=== PATIENT | female | born 2000 | race Caucasian/White ===

== ENCOUNTER 2019-06-14 18:22 | Emergency (ER) | payer BC, SELFPAY | END 2019-06-14 21:25 | disposition home or self-care (01) | PROVIDERS: Emergency Provider Emergency Medicine; Family Provider Nurse Practitioner Family; Visit Provider Emergency Medicine | DX: R10.11 Right upper quadrant pain (principal); R10.13 Epigastric pain; R10.12 Left upper quadrant pain; J45.909 Unspecified asthma, uncomplicated; Z87.891 Personal history of nicotine dependence | CPT/HCPCS: 76700; 76815; 76817; 80053; 81001; 83690; 83735; 85025; 96361 ×2; 96374; 96375; 99284; J2270; J2765 ==

== ENCOUNTER 2019-06-24 14:33 | Emergency (ER) | payer BC, SELFPAY ==
[2019-06-24 15:06] VITALS: BP 123/81; PULSE 83; RESP 18; TEMP 36.8; O2SAT 98; BMI 32.8
[2019-06-24 15:43] LABS: Basophils % 0.1 %; Eosinophils % 0.4 %; Hematocrit 35.6 % (37.0-47.0); Hemoglobin 12.1 g/dL (11.5-15.3); Lymphocytes # 1.2 10^3/uL (0.8-4.8); Lymphocytes % 15.5 %; Mean Corpuscular Hemoglobin 28.3 pg (28.0-34.0); Mean Corpuscular Volume 83.4 fL (81-99); Mean Platelet Volume 11.4 fL (7.4-10.4); Monocytes # 0.3 10^3/uL (0.2-0.9); Monocytes % 4.1 %; Neutrophils # 6.2 10^3/uL (1.8-7.7); Neutrophils % 79.6 %; Nucleated Red Blood Cells % 0 %; Platelet Count 181 10^3/cmm (130-400); Red Blood Count 4.27 10^6/uL (4.1-5.3); Red Cell Distribution Width 12.2 % (12.1-15.1); White Blood Count 7.8 10^3/uL (4.0-10.0)
[2019-06-24 16:02] LABS: Alanine Aminotransferase 45 U/L (0-33); Albumin Level 4.3 g/dL (3.5-5.2); Alkaline Phosphatase 88 IU/L (35-105); Anion Gap 16.8 (5-19); Aspartate Amino Transferase 32 U/L (0-32); Blood Urea Nitrogen 10 mg/dL (6-20); Calcium 9.9 mg/Dl (8.6-10.0); Carbon Dioxide 20 mmol/L (22-29); Chloride 102 mmol/L (98-107); Globulin 2.8 g/dL (1.3-4.6); Glomerular Filtration Rate 126.2 mL/min (90-130); Glucose 87 mg/dL (74-109); Potassium 3.8 mmol/L (3.5-5.1); Sodium 135 mmol/L (136-145); Total Bilirubin 0.2 mg/dL (0.15-1.2); Total Protein 7.1 g/dL (6.6-8.7)
[2019-06-24 18:31] LABS: Add Urine Microscopic? YES; Bilirubin Urine Neg (NEGATIVE); Blood Urine Neg (Negative); Glucose Urine UA Norm (Normal); Ketones Urine 2+ (Negative); Leukocyte Esterase Urine 1+ (Negative); Nitrate Urine Negative (Negative); Protein Urine Neg (Negative); Specific Gravity, Urine 1.025 (1.005-1.030); Urine Appearance SL Hazy (CLEAR); Urine Color Yellow (Yellow); Urobilinogen Urine 1 mg/dL (Negative); pH Urine 5 (5-7)
[2019-06-24 18:44] LABS: Bacteria Urine 2+
--- NOTE | 2019-06-24 20:42 | ED_ITS ---
Entered by Raysa Doll, acting as scribe for Pam Roy MD Jun 24, 2019 14:33 HPI - Abdominal Pain General: Chief Complaint: Abdominal Pain Stated Complaint: 13wks preg cramping Time Seen by Provider: 06/24/19 20:40 Source: patient and family Mode of arrival: ambulatory History of Present Illness: HPI narrative: 19 y/o female presents to the ED with complaint of abd pain and cramping. Pt states she is currently . 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 She is worried that the cleaning products have brought about her cramping and nausea for the past 2-3 days. She has not seen her OB yet because she does not have a ride. MD elicited complaint: abdominal pain Onset (ago): day(s) (2-3) Pain Consistency: intermittent Severity: mild Quality: cramping Associated Symptoms: Reports nausea; Denies chills and fever(s) Related Data: Date of Last Menstrual Period: 03/17/19 Patient : Yes Review of Systems Const: Denies: fever or chills Eyes: Denies: change in vision ENMT: Denies: throat pain or mouth pain Card: Denies: chest pain Resp: Denies: shortness of breath GI: Reports: nausea : Denies: difficulty urinating Musc: Denies: back pain or joint pain Skin/Breast: Denies: rash Neuro: Denies: headache or behavioral changes Psych: Denies: depression Endo: Denies: excessive urination Everardo/Lymph: Denies: easy bruising All/Imm: Denies: hives PFSH ED PFSH: Statuses (acute, chronic, etc) shown below reflect problem list status as previously entered and may not be historically accurate Social History Smoking and tobacco status: former smoker Female Reproductive History: Date of last menstrual period: 03/17/19 Physical Exam Const: COMMON NORMALS: no apparent distress, oriented x3 and healthy appearing HENMT: COMMON NORMALS: normocephalic and external nose normal HEAD & SCALP: normocephalic NOSE: external nose normal Eye: COMMON NORMALS: PERRL PUPIL: Yes PERRL Neck/C-Spine: COMMON NORMALS: full ROM and no lymphadenopathy Chest: COMMONS NORMALS: inspection of chest normal Resp: COMMON NORMALS: normal respiratory effort, no use of accessory muscles and clear to auscultation bilaterally AUSCULTATION: clear to auscultation bilaterally Cardio: COMMON NORMALS: regular rate and regular rhythm RATE: regular rate RHYTHM: regular rhythm GI: COMMON NORMALS: normal to inspection, nondistended, normoactive bowel sounds, soft to palpation, non-tender and no masses PALPATION: Yes soft Back/Pelvis: THORACIC SPINE/UPPER BACK: Yes normal to inspection Extremity: COMMON NORMALS: normal to inspection, full ROM and normal capillary refill Neuro: COMMON NORMALS: oriented x3 Psych: COMMON NORMALS: mental status grossly normal and cooperative Skin: COMMON NORMALS: no rashes or lesions noted GENERAL SKIN EXAM: no rashes or lesions noted Course Vital Signs: Vital signs: Vital Signs Temperature 98.2 F 06/24/19 15:06 Pulse Rate 83 06/24/19 15:06 Respiratory Rate 18 06/24/19 15:06 Blood Pressure 123/81 06/24/19 15:06 Pulse Oximetry 98 06/24/19 15:06 MDM - Abdominal Pain MDM Narrative: Medical decision making narrative: Patient presents here with abdominal pain and that is likely round ligament pain. Patient's ultrasound here shows IUP with heart rate of in 140s. Patient has no signs appendicitis. Patient is stable for discharge and is to follow-up with OB as soon as possible Lab Data: Labs: Lab Results 06/23/19 06/24/19 06/24/19 Range/Units 15:30 15:32 15:32 WBC 7.8 (4.0-10.0) 10^3/ uL RBC 4.27 (4.1-5.3) 10^6/u L Hgb 12.1 (11.5-15.3) g/dL Hct 35.6 L (37.0-47.0) % MCV 83.4 (81-99) fL MCH 28.3 (28.0-34.0) pg MCHC 34.0 (30.0-36.0) g/dL RDW 12.2 (12.1-15.1) % Plt Count 181 (130-400) 10^3/c mm MPV 11.4 H (7.4-10.4) fL Neut % (Auto) 79.6 % Lymph % (Auto) 15.5 % Bucks % (Auto) 4.1 % Eos % (Auto) 0.4 % Baso % (Auto) 0.1 % Neut # (Auto) 6.2 (1.8-7.7) 10^3/u L Lymph # (Auto) 1.2 (0.8-4.8) 10^3/u L Bucks # (Auto) 0.3 (0.2-0.9) 10^3/u L Eos # (Auto) 0.0 (0.0-0.8) 10^3/u L Baso # (Auto) 0.0 (0.0-0.1) 10^3/u L Nucleated RBC % (a uto) 0 % Nucleated RBCs # 0.0 /100WBC Sodium (136-145) mmol/L Potassium (3.5-5.1) mmol/L Chloride (98-107) mmol/L Carbon Dioxide (22-29) mmol/L Anion Gap (5-19) BUN (6-20) mg/dL Creatinine (0.5-0.9) mg/dL GFR Calculation (90-130) mL/min Glucose (74-109) mg/dL Calcium (8.6-10.0) mg/Dl Total Bilirubin (0.15-1.2) mg/dL AST (0-32) U/L ALT (0-33) U/L Alkaline Phosphata se (35-105) IU/L Total Protein (6.6-8.7) g/dL Albumin (3.5-5.2) g/dL Globulin (1.3-4.6) g/dL Ser , Geovanny i-Qnt mIU/mL Urine Color Yellow (Yellow) Urine Appearance Sl hazy (CLEAR) Urine pH 5 (5-7) Ur Specific Gravit y 1.025 (1.005-1.030) Urine Protein Neg (Negative) Urine Glucose (UA) Norm (Normal) Urine Ketones 2+ H (Negative) Urine Occult Blood Neg (Negative) Urine Nitrate Negative (Negative) Urine Bilirubin Neg (NEGATIVE) Urine Urobilinogen 1 H (Negative) mg/dL Ur Leukocyte Diamond ase 1+ H (Negative) Urine RBC None (0-2) /hpf Urine WBC 5-10 H (0-5) /hpf Ur Squamous Epith Cells 10-15 H (0-5) Calcium Oxalate Cr ystal 5-10 H /hpf Urine Bacteria 2+ H (NONE) Blood Type O Negative 06/24/19 06/24/19 Range/Units 15:32 15:32 WBC (4.0-10.0) 10^3/ uL RBC (4.1-5.3) 10^6/u L Hgb (11.5-15.3) g/dL Hct (37.0-47.0) % MCV (81-99) fL MCH (28.0-34.0) pg MCHC (30.0-36.0) g/dL RDW (12.1-15.1) % Plt Count (130-400) 10^3/c mm MPV (7.4-10.4) fL Neut % (Auto) % Lymph % (Auto) % Bucks % (Auto) % Eos % (Auto) % Baso % (Auto) % Neut # (Auto) (1.8-7.7) 10^3/u L Lymph # (Auto) (0.8-4.8) 10^3/u L Bucks # (Auto) (0.2-0.9) 10^3/u L Eos # (Auto) (0.0-0.8) 10^3/u L Baso # (Auto) (0.0-0.1) 10^3/u L Nucleated RBC % (a uto) % Nucleated RBCs # /100WBC Sodium 135 L (136-145) mmol/L Potassium 3.8 (3.5-5.1) mmol/L Chloride 102 (98-107) mmol/L Carbon Dioxide 20 L (22-29) mmol/L Anion Gap 16.8 (5-19) BUN 10 (6-20) mg/dL Creatinine 0.6 (0.5-0.9) mg/dL GFR Calculation 126.2 (90-130) mL/min Glucose 87 (74-109) mg/dL Calcium 9.9 (8.6-10.0) mg/Dl Total Bilirubin 0.2 (0.15-1.2) mg/dL AST 32 (0-32) U/L ALT 45 H (0-33) U/L Alkaline Phosphata se 88 (35-105) IU/L Total Protein 7.1 (6.6-8.7) g/dL Albumin 4.3 (3.5-5.2) g/dL Globulin 2.8 (1.3-4.6) g/dL Ser , [place] 50108.00 mIU/mL Urine Color (Yellow) Urine Appearance (CLEAR) Urine pH (5-7) Ur Specific Gravit y (1.005-1.030) Urine Protein (Negative) Urine Glucose (UA) (Normal) Urine Ketones (Negative) Urine Occult Blood (Negative) Urine Nitrate (Negative) Urine Bilirubin (NEGATIVE) Urine Urobilinogen (Negative) mg/dL Ur Leukocyte Diamond ase (Negative) Urine RBC (0-2) /hpf Urine WBC (0-5) /hpf Ur Squamous Epith Cells (0-5) Calcium Oxalate Cr ystal /hpf Urine Bacteria (NONE) Blood Type Discharge Plan Discharge Patient Disposition: Home, Self-Care Clinical Impression: Abdominal pain affecting Condition: Stable Prescriptions: New Zofran 4 mg tablet 4 mg PO QID PRN (Reason: nausea and vomiting) Qty: 14 RF: 0 No Action albuterol sulfate 90 mcg/actuation Hfa Aerosol Inhaler 2 puff INHALATION QID PRN (Reason: Shortness Of Breath Or Wheezing) RF: 0 28-800 mg-mcg Tablet PO DAILY RF: 0 Discharge Orders: Discharge Order (Routine); Ordered 06/24/19 Ordered By: Pam Roy Referrals: Scotty Lindsay MD [Physician] - Greg Begum FNP [Primary Care Provider] - Discharge Diet: Advance as tolerated Discharge Activity: Resume usual activity Patient Instructions: (ED) Stand Alone Forms: Work/School Release Discharge Date/Time: 06/24/19 21:05 Coding Level of Care Code ED Diabetes Trainer for Chg Fwd Exam Problem Focused The documentation recorded by the Lavon castañeda Ashley, accurately reflects the service I personally performed and the decisions made by Kirill marie Korby, MD Jun 24, 2019 14:33
== END 2019-06-24 21:05 | disposition home or self-care (01) ==
PROVIDERS: Physician Assistant; Emergency Provider Emergency Medicine; Family Provider Nurse Practitioner Family; PCP Nurse Practitioner Family
DX: O26.891 Other specified pregnancy related conditions, first trimester (principal); R10.9 Unspecified abdominal pain; Z3A.13 13 weeks gestation of pregnancy; Z87.891 Personal history of nicotine dependence
CPT/HCPCS: 36415; 80053; 81003; 84702; 85025; 86900; 99281

== ENCOUNTER 2019-07-01 00:12 | Emergency (ER) | payer BC, SELFPAY ==
--- NOTE | 2019-07-01 00:24 | ED_ITS ---
Entered by Raysa Doll, acting as scribe for Pam Roy MD HPI - General Adult General: Chief complaint: Shortness of Breath/Dyspnea Stated complaint: SOB Time Seen by Provider: 07/01/19 00:16 Source: patient, family and EMS Mode of arrival: EMS Limitations: no limitations History of Present Illness: HPI narrative: 19 y/o female presents to the ED for SOB with exertion. Pt states they were walking outside when this occurred. Pt reports abd pain and wants an ultrasound for her baby. MD complaint: SOB Onset (ago): hour(s) Location: chest Severity: mild Associated symptoms: Reports dyspnea (with exertion); Deny chest pain, headache(s), nausea, rash or vomiting Review of Systems Const: Denies: fever or chills Eyes: Denies: change in vision ENMT: Denies: throat pain or mouth pain Card: Denies: chest pain Resp: Reports: shortness of breath (with exertion) GI: Reports: abdominal pain; Denies: nausea, vomiting or diarrhea : Denies: difficulty urinating Musc: Denies: back pain or joint pain Skin/Breast: Denies: rash Neuro: Denies: headache or behavioral changes Psych: Denies: depression Endo: Denies: excessive urination Everardo/Lymph: Denies: easy bruising All/Imm: Denies: hives PFSH ED PFSH: Statuses (acute, chronic, etc) shown below reflect problem list status as previously entered and may not be historically accurate Social History Smoking and tobacco status: former smoker Female Reproductive History: Date of last menstrual period: 03/17/19 Physical Exam Const: COMMON NORMALS: no apparent distress, oriented x3 and healthy appearing HENMT: COMMON NORMALS: normocephalic and external nose normal HEAD & SCALP: normocephalic NOSE: external nose normal Eye: COMMON NORMALS: PERRL PUPIL: Yes PERRL Neck/C-Spine: COMMON NORMALS: full ROM and no lymphadenopathy Chest: COMMONS NORMALS: inspection of chest normal Resp: COMMON NORMALS: normal respiratory effort, no use of accessory muscles and clear to auscultation bilaterally AUSCULTATION: clear to auscultation bilaterally Cardio: COMMON NORMALS: regular rate and regular rhythm RATE: regular rate RHYTHM: regular rhythm GI: COMMON NORMALS: normal to inspection, nondistended, normoactive bowel sounds, soft to palpation, non-tender and no masses PALPATION: Yes soft Back/Pelvis: THORACIC SPINE/UPPER BACK: Yes normal to inspection Extremity: COMMON NORMALS: normal to inspection, full ROM and normal capillary refill Neuro: COMMON NORMALS: oriented x3 Psych: COMMON NORMALS: mental status grossly normal and cooperative Skin: COMMON NORMALS: no rashes or lesions noted GENERAL SKIN EXAM: no rashes or lesions noted Course Vital Signs: Vital signs: Vital Signs Temperature 97.5 F L 07/01/19 00:25 Pulse Rate 68 07/01/19 00:25 Respiratory Rate 24 H 07/01/19 00:25 Blood Pressure 121/77 07/01/19 00:25 Pulse Oximetry 98 07/01/19 00:25 MDM - General Adult MDM Narrative: Medical decision making narrative: Patient presents here with dyspnea that is since resolved. EKG and x-ray here are normal. She has no signs of pneumonia or pulmonary embolism. Patient is to follow-up with OB in 2 to 4 days and return if worsening. Imaging Data^: CXR: Attestation: I personally reviewed and interpreted this imaging study as follows: My impression: no acute abnormality EKG Data^: EKG 1: Attestation: I personally reviewed and interpreted this EKG as follows: EKG interpretation date: 07/01/19 EKG interpretation time: 00:51 Interpretation: nsr hr [address] or t wave abnormalities qrs 85 qtc 405 Discharge Plan Discharge Patient Disposition: Home, Self-Care Clinical Impression: Breath shortness Condition: Stable Prescriptions: No Action albuterol sulfate 90 mcg/actuation Hfa Aerosol Inhaler 2 puff INHALATION QID PRN (Reason: Shortness Of Breath Or Wheezing) RF: 0 28-800 mg-mcg Tablet PO DAILY RF: 0 Zofran 4 mg tablet 4 mg PO QID PRN (Reason: nausea and vomiting) Qty: 14 RF: 0 Discharge Orders: Discharge Order (Routine); Ordered 07/01/19 Ordered By: Pam Roy Referrals: Greg Begum FNP [Primary Care Provider] - 4-7 days Discharge Diet: Advance as tolerated Discharge Activity: Resume usual activity Patient Instructions: Dyspnea (ED) Coding Level of Care Code ED Spring Setter for [facility] Fwd Exam Problem Focused The documentation recorded by the scribe, Green,Raysa, accurately reflects the service I personally performed and the decisions made by me, Pam Roy MD
[2019-07-01 00:25] VITALS: BP 121/77; PULSE 68; RESP 24; TEMP 36.4; O2SAT 98
--- NOTE | 2019-07-01 00:25 | ECG_ITS ---
Measurements Intervals [place] Rate: 63 P: 50 VA: 162 QRS: 24 QRSD: 85 T: 18 QT: 397 QTc: 409 SINUS RHYTHM No previous ECG available for comparison Electronically Signed On 07-01-2019 20:11:23 CHIEF OPERATOR SYNTHESIS by Vanesa Carreno M.D. [email or web address]
--- NOTE | 2019-07-01 00:25 | XR_ITS ---
WS: [id number] CHEST XRAY TECHNIQUE: Portable chest. CLINICAL INFORMATION: sob COMPARISON: None. FINDINGS: Heart: Normal cardiac silhouette. Lungs: Lungs are clear. No consolidation or pleural effusion. Bones: Normal visualized bony structures. XR/XR chest 1V portable [id number] IMPRESSION: Normal chest
[2019-07-01 01:30] VITALS: BP 105/73; PULSE 68; RESP 18; O2SAT 97
== END 2019-07-01 01:31 | disposition home or self-care (01) ==
PROVIDERS: Emergency Provider Emergency Medicine; Family Provider Nurse Practitioner Family; PCP Nurse Practitioner Family
DX: R06.02 Shortness of breath (principal); Z87.891 Personal history of nicotine dependence
CPT/HCPCS: 71045; 93005; 99282

== ENCOUNTER 2019-07-05 13:45 | Emergency (ER) | payer BC, SELFPAY ==
[2019-07-05 13:55] VITALS: BP 114/80; PULSE 104; RESP 17; TEMP 36.8; O2SAT 98; BMI 30.9
--- NOTE | 2019-07-05 14:25 | ED_ITS ---
Entered by Jennifer Kern, acting as scribe for Cayden Vanessa DO HPI - Psych General: Chief Complaint: Psychiatric Symptoms Stated Complaint: 15 weeks preg, abn pain Time Seen by Provider: 07/05/19 14:25 Source: patient Mode of arrival: ambulatory Limitations: no limitations History of Present Illness: HPI Narrative: 19 yo Female presents to ED with complaint of psychiatric symptoms. Pt states that there is too much going on and she can't handle it mentally anymore. Pt states that they are homeless and have nowhere to go for the next 48 hours. Pt states that she is afraid she is going to lose her baby. Pt states that she is 14 weeks . Pt states that her nausea won't go away and her cramps won't go away. Pt states that she has no FIELD TRAFFIC INVESTIGATOR. Pt states that she was supposed to see an FIELD TRAFFIC INVESTIGATOR in May but she had to cancel twice because her ride cancelled on her an hour before her appointments. Pt states that she is not homicidal or suicidal. Pt states that she needs a mood stabilizer and a place to stay for 48 hours. Associated symptoms: Deny depression Review of Systems General: Reports: 10 or more systems reviewed and unremarkable except in HPI and below Const: Denies: fever, chills or body aches Eyes: Denies: change in vision, blurry vision or blind spots ENMT: Denies: throat pain, uvular edema, enlarged tonsils, painful swallowing, hoarseness, mouth pain or swelling of lips/tongue Card: Denies: chest pain, palpitations, irregular heart rhythm, edema or swelling of feet/ankles Resp: Denies: shortness of breath, productive cough or non-productive cough GI: Reports: nausea and cramping; Denies: abdominal pain or vomiting : Denies: flank pain, difficulty urinating, painful urination, urinary frequency or urinary urgency Musc: Denies: joint swelling or redness Skin/Breast: Denies: rash, itching or redness Neuro: Denies: headache, numbness in extremities or weakness in extremities Psych: Reports: anxiety; Denies: depression, mood swings or panic attacks Endo: Denies: excessive urination, excessive thirst or tired all the time Everardo/Lymph: Denies: easy bruising or easy bleeding PFSH ED PFSH: Statuses (acute, chronic, etc) shown below reflect problem list status as previously entered and may not be historically accurate Social History Smoking and tobacco status: former smoker Female Reproductive History: Date of last menstrual period: 03/17/19 Physical Exam Const: COMMON NORMALS: no apparent distress, average body habitus, oriented x3, no limitations, healthy appearing, alert and well nourished HENMT: COMMON NORMALS: normocephalic, head/scalp atraumatic, hearing grossly normal bilaterally, external ears normal, EAC's normal, TM's normal bilaterally, external nose normal, nasal mucous membranes and turbinates normal, moist oral mucous membranes, oropharynx normal, dentition normal and gingiva normal HEAD & SCALP: normocephalic and atraumatic NOSE: external nose normal and nasal mucous membranes and turbinates normal EXTERNAL EAR: Yes external ears normal EXTERNAL AUDITORY CANAL: EAC's normal TYMPANIC MEMBRANE: TM's normal bilaterally THROAT: no uvular edema Eye: COMMON NORMALS: PERRL, EOMs intact bilaterally, conjunctivae normal, no scleral icterus, no papilledema, normal visual marcelino by confrontation and fundi normal bilaterally CONJUNCTIVA: Yes conjunctivae normal PUPIL: Yes PERRL DIRECT OPHTHALMOSCOPY: Yes no papilledema and Yes fundi normal bilaterally Neck/C-Spine: COMMON NORMALS: full ROM, no lymphadenopathy, supple, no meningeal signs, no JVD, thyroid normal and no carotid bruits THYROID: thyroid normal Chest: COMMONS NORMALS: inspection of chest normal and palpation of chest normal Resp: COMMON NORMALS: normal respiratory effort, no retractions, no use of accessory muscles, clear to auscultation bilaterally and percussion normal AUSCULTATION: clear to auscultation bilaterally PERCUSSION: percussion normal Cardio: COMMON NORMALS: no JVD, regular rate, regular rhythm, S1 normal heart sound, S2 normal heart sound, no gallops, no clicks, no murmurs, no rub and peripheral pulses 2+ throughout RATE: regular rate RHYTHM: regular rhythm HEART SOUNDS: S1 normal and S2 normal PERIPHERAL PULSES: pulses 2+ throughout GI: COMMON NORMALS: normal to inspection, nondistended, normoactive bowel sounds, soft to palpation, non-tender, no hepatosplenomegaly, no masses and no bruits PALPATION: Yes soft and Yes no hepatosplenomegaly : COMMON NORMALS: Yes no CVA tenderness and Yes external appearance normal BLADDER/KIDNEY EXAM: Yes no CVA tenderness Back/Pelvis: COMMON NORMALS: no CVA tenderness, thoracic and lumbar spine normal to inspection, no thoracic nor lumbar tenderness, thoraco-lumbar ROM normal and straight leg raise negative bilaterally Extremity: COMMON NORMALS: normal to inspection, full ROM, normal capillary refill, no joint enlargement, no clubbing, cyanosis or edema, no calf tenderness and no pedal edema Neuro: COMMON NORMALS: oriented x3 SENSORIUM/ORIENTATION: Yes alert MENINGEAL SIGNS: Yes no meningeal signs Skin: COMMON NORMALS: no rashes or lesions noted, no wounds, skin turgor normal, no jaundice, no petechiae and no mottling GENERAL SKIN EXAM: no rashes or lesions noted and turgor normal MDM - Psych Lab Data: Labs: Lab Results 07/05/19 07/05/19 07/05/19 Range/Units 14:03 14:03 14:03 WBC (4.0-10.0) 10^3/ uL RBC (4.1-5.3) 10^6/u L Hgb (11.5-15.3) g/dL Hct (37.0-47.0) % MCV (81-99) fL MCH (28.0-34.0) pg MCHC (30.0-36.0) g/dL RDW (12.1-15.1) % Plt Count (130-400) 10^3/c mm MPV (7.4-10.4) fL Neut % (Auto) % Lymph % (Auto) % Story % (Auto) % Eos % (Auto) % Baso % (Auto) % Neut # (Auto) (1.8-7.7) 10^3/u L Lymph # (Auto) (0.8-4.8) 10^3/u L Story # (Auto) (0.2-0.9) 10^3/u L Eos # (Auto) (0.0-0.8) 10^3/u L Baso # (Auto) (0.0-0.1) 10^3/u L Nucleated RBC % (a uto) % Nucleated RBCs # /100WBC PT (10.5-13.3) SECO NDS INR (0.8-1.2) HCG, Qual Positive H (Negative) Urine Color Straw (Yellow) Urine Appearance Hazy A (CLEAR) Urine pH 5 (5-7) Ur Specific Gravit y 1.025 (1.005-1.030) Urine Protein Trace (Negative) Urine Glucose (UA) Norm (Normal) Urine Ketones Negative (Negative) Urine Occult Blood Neg (Negative) Urine Nitrate Negative (Negative) Urine Bilirubin Neg (NEGATIVE) Urine Urobilinogen Norm (Negative) mg/dL Ur Leukocyte Diamond ase 2+ H (Negative) Urine RBC None (0-2) /hpf Urine WBC 15-25 H (0-5) /hpf Ur Squamous Epith Cells 55-80 H (0-5) Ur Transition Epit h Cell 5-10 /hpf Urine Bacteria 3+ H (NONE) Urine Mucus 3+ Urine Opiates Scre en Negative (Negative) ng/mL Ur Barbiturates Sc reen Negative (Negative) ng/mL Ur Phencyclidine S crn Negative (Negative) ng/mL Ur Amphetamines Sc reen Negative (Negative) ng/mL U Benzodiazepines Scrn Negative (Negative) ng/mL Urine Cocaine Scre en Negative (Negative) ng/mL U Marijuana (THC) Screen Negative (Negative) ng/mL 07/05/19 07/05/19 Range/Units 14:35 14:35 WBC 6.9 (4.0-10.0) 10^3/ uL RBC 4.22 (4.1-5.3) 10^6/u L Hgb 12.0 (11.5-15.3) g/dL Hct 35.1 L (37.0-47.0) % MCV 83.2 (81-99) fL MCH 28.4 (28.0-34.0) pg MCHC 34.2 (30.0-36.0) g/dL RDW 12.1 (12.1-15.1) % Plt Count 167 (130-400) 10^3/c mm MPV 11.0 H (7.4-10.4) fL Neut % (Auto) 79.8 % Lymph % (Auto) 14.5 % Story % (Auto) 4.9 % Eos % (Auto) 0.6 % Baso % (Auto) 0.1 % Neut # (Auto) 5.5 (1.8-7.7) 10^3/u L Lymph # (Auto) 1.0 (0.8-4.8) 10^3/u L Story # (Auto) 0.3 (0.2-0.9) 10^3/u L Eos # (Auto) 0.0 (0.0-0.8) 10^3/u L Baso # (Auto) 0.0 (0.0-0.1) 10^3/u L Nucleated RBC % (a uto) 0 % Nucleated RBCs # 0.0 /100WBC PT 14.30 H (10.5-13.3) SECO NDS INR 1.08 (0.8-1.2) HCG, Qual (Negative) Urine Color (Yellow) Urine Appearance (CLEAR) Urine pH (5-7) Ur Specific Gravit y (1.005-1.030) Urine Protein (Negative) Urine Glucose (UA) (Normal) Urine Ketones (Negative) Urine Occult Blood (Negative) Urine Nitrate (Negative) Urine Bilirubin (NEGATIVE) Urine Urobilinogen (Negative) mg/dL Ur Leukocyte Diamond ase (Negative) Urine RBC (0-2) /hpf Urine WBC (0-5) /hpf Ur Squamous Epith Cells (0-5) Ur Transition Epit h Cell /hpf Urine Bacteria (NONE) Urine Mucus Urine Opiates Scre en (Negative) ng/mL Ur Barbiturates Sc reen (Negative) ng/mL Ur Phencyclidine S crn (Negative) ng/mL Ur Amphetamines Sc reen (Negative) ng/mL U Benzodiazepines Scrn (Negative) ng/mL Urine Cocaine Scre en (Negative) ng/mL U Marijuana (THC) Screen (Negative) ng/mL Discharge Plan Discharge Patient Disposition: Home, Self-Care Clinical Impression: Depression Qualifiers: Depression Type: major depressive disorder Major depression recurrence: recurrent Active/Remission status: currently active Major depression episode severity: moderate Qualified Code(s): F33.1 - Major depressive disorder, recurrent, moderate Currently Qualifiers: Weeks of gestation: 13 weeks Qualified Code(s): Z3A.13 - 13 weeks gestation of Condition: Stable Prescriptions: No Action albuterol sulfate 90 mcg/actuation Hfa Aerosol Inhaler 2 puff INHALATION QID PRN (Reason: Shortness Of Breath Or Wheezing) RF: 0 28-800 mg-mcg Tablet PO DAILY RF: 0 Zofran 4 mg tablet 4 mg PO QID PRN (Reason: nausea and vomiting) Qty: 14 RF: 0 Discharge Orders: Discharge Order (Routine); Ordered 07/05/19 Ordered By: Cayden Vanessa Referrals: Greg Begum, POURED PIPE MAKER [Primary Care Provider] - Coding Level of Care Code ED Opening Machine Cleaner for Chg Fwd Exam Problem Focused The documentation recorded by the Erlin castañeda Carmen, accurately reflects the service I personally performed and the decisions made by , Cayden Vanessa, Jul 05, 2019 13:45
--- NOTE | 2019-07-05 14:27 | PC.NURSE ---
Pt states she feels stressed. She is homeless, and states that she is 4 months . Pt states she hasn't received any care, and hasn't met with an OBGYN. Pt states she was recently kicked out of their homeless longterm, she has no support system, except for her . Pt states they can't get a job, because they don't have money to fax the paperwork to the job. Pt states she used to take psych meds, but they took her off of the medications since she became . Since then she feels stressed and feels like nothing is working. Pt stated she needs something to help her or she can't take it anymore. Pt denies being homicidal or suicidal.
[2019-07-05 14:41] LABS: HCG Qualitative Urine. Positive (Negative)
[2019-07-05 14:42] LABS: Basophils % 0.1 %; Eosinophils % 0.6 %; Hematocrit 35.1 % (37.0-47.0); Lymphocytes % 14.5 %; Mean Corpuscular HGB Conc 34.2 g/dL (30.0-36.0); Mean Corpuscular Hemoglobin 28.4 pg (28.0-34.0); Mean Corpuscular Volume 83.2 fL (81-99); Monocytes # 0.3 10^3/uL (0.2-0.9); Monocytes % 4.9 %; Neutrophils # 5.5 10^3/uL (1.8-7.7); Neutrophils % 79.8 %; Nucleated Red Blood Cells % 0 %; Platelet Count 167 10^3/cmm (130-400); Red Blood Count 4.22 10^6/uL (4.1-5.3); Red Cell Distribution Width 12.1 % (12.1-15.1); White Blood Count 6.9 10^3/uL (4.0-10.0)
[2019-07-05 14:51] LABS: INR 1.08 (0.8-1.2)
[2019-07-05 14:56] LABS: Amphetamines Screen Urine Negative (Negative); Barbiturates Screen Urine Negative (Negative); Benzodiazepines Screen Urine Negative (Negative); Cocaine Screen Urine Negative (Negative); Opiate Screen Urine Negative (Negative); PCP Screen Urine Negative (Negative); THC Screen Urine Negative (Negative)
[2019-07-05 15:00] LABS: Bilirubin Urine Neg (NEGATIVE); Blood Urine Neg (Negative); Glucose Urine UA Norm (Normal); Ketones Urine Negative (Negative); Nitrate Urine Negative (Negative); Protein Urine Trace (Negative); Specific Gravity, Urine 1.025 (1.005-1.030); Urine Appearance Hazy (CLEAR); Urine Color Straw (Yellow); pH Urine 5 (5-7)
[2019-07-05 15:01] LABS: Add Urine Microscopic? YES; Leukocyte Esterase Urine 2+ (Negative); Urobilinogen Urine Norm (Negative)
[2019-07-05 15:02] LABS: Add Urine Culture? No; Bacteria Urine 3+; Mucus Urine 3+; Squamous Epithelial Cell Urine 55-80 (0-5); WBC Urine 15-25 /hpf (0-5)
[2019-07-05 15:13] LABS: Alanine Aminotransferase 27 U/L (0-33); Alkaline Phosphatase 87 IU/L (35-105); Anion Gap 17.5 (5-19); Aspartate Amino Transferase 20 U/L (0-32); Blood Urea Nitrogen 6 mg/dL (6-20); Calcium 9.7 mg/Dl (8.6-10.0); Carbon Dioxide 20 mmol/L (22-29); Chloride 102 mmol/L (98-107); Globulin 3.3 g/dL (1.3-4.6); Glomerular Filtration Rate 126.2 mL/min (90-130); Glucose 105 mg/dL (74-109); Potassium 3.5 mmol/L (3.5-5.1); Sodium 136 mmol/L (136-145); Thyroid Stimulating Hormone 0.55 uIU/mL (0.27-4.20); Total Bilirubin 0.2 mg/dL (0.15-1.2); Total Protein 7.3 g/dL (6.6-8.7)
[2019-07-05 15:17] LABS: Acetaminophen < 5.0 ug/mL (10-30); Alcohol Level < 10 mg/dL (0-10); Salicylate < 0.3 mg/dL (3-10)
[2019-07-05 15:24] VITALS: BP 110/70; PULSE 99; RESP 18; O2SAT 98
--- NOTE | 2019-07-06 13:58 | DCPLANNER ---
casino assistant manager had message to speak with patient about services at [facility]. casino assistant manager called [facility] to confirm if patient was a patient at the clinic. casino assistant manager was told that patient is not in the system and would have to do a walk in assessment. Patient came to the hospital to see welfare case worker about a referral to [facility]. casino assistant manager called [facility], spoke with Jocelyn, gave clinic patients information. casino assistant manager was told that patients information would be printed and reviewed. casino assistant manager called patient and informed patient of what she would need to do for services at [facility], and then told patient that the referral to [facility] has been completed and that the clinic should be calling patient with appointment information.
--- NOTE | 2019-07-08 10:49 | DCPLANNER ---
Patient has a follow up appointment scheduled for Saturday, July 17, 2019 at 1:[address] Lindsay. Clinic will contact patient with appointment information.
--- NOTE | 2019-08-07 14:43 | DCPLANNER ---
Patient did attend appointment scheduled for 07.17.19 with [facility].
== END 2019-07-05 15:20 | disposition home or self-care (01) ==
PROVIDERS: Emergency Provider Family Medicine; Family Provider Nurse Practitioner Family; PCP Nurse Practitioner Family
DX: O99.341 Other mental disorders complicating pregnancy, first trimester (principal); F33.1 Major depressive disorder, recurrent, moderate; Z3A.13 13 weeks gestation of pregnancy; Z87.891 Personal history of nicotine dependence
CPT/HCPCS: 36415; 80053; 80307; 81003; 81025; 84443; 85025; 85610; 99284

== ENCOUNTER 2019-07-10 17:25 | Emergency (ER) | payer BC, SELFPAY ==
[2019-07-10 17:41] VITALS: BP 120/71; PULSE 67; RESP 17; TEMP 36.3; O2SAT 100; BMI 30.9
--- NOTE | 2019-07-10 19:36 | ED_ITS ---
Entered by [id number], acting as scribe for Pam Roy MD Jul 10, 2019 17:25 HPI - Female Genitourinary General: Chief complaint: Vaginal Bleeding Stated complaint: vag bleeding, cramps, 16 weeks Time Seen by Provider: 07/10/19 19:34 Source: patient and family Mode of arrival: ambulatory Limitations: no limitations History of Present Illness: HPI Narrative: 19 yo female presents to ED with complaints of vaginal bleeding. The patient states she began bleeding today about 1630 today. She denies blood clots. She has not seen an OBGYN yet. She states she is 16 weeks . This is the patient's first . MD elicited complaint: vaginal bleeding Onset (ago): hour(s) (3) Location of symptoms: vaginal Severity: mild Consistency: intermittent Vaginal bleeding: scant Associated symptoms: Deny abdominal pain, headache(s) or nausea Patient : Yes Date of Last Menstrual Period: 03/17/19 Related Data: : 1 Para: 0 Review of Systems Const: Denies: fever or chills Eyes: Denies: change in vision ENMT: Denies: throat pain or mouth pain Card: Denies: chest pain Resp: Denies: shortness of breath GI: Denies: abdominal pain, nausea, vomiting or diarrhea : Reports: vaginal bleeding; Denies: difficulty urinating Musc: Denies: back pain or joint pain Skin/Breast: Denies: rash Neuro: Denies: headache or behavioral changes Psych: Denies: depression Endo: Denies: excessive urination [place]/Lymph: Denies: easy bruising All/Imm: Denies: hives PFSH ED PFSH: Statuses (acute, chronic, etc) shown below reflect problem list status as previously entered and may not be historically accurate Social History Smoking and tobacco status: never smoked Current gender identity: Female Female Reproductive History: Date of last menstrual period: 03/17/19 : 1 Physical Exam Const: COMMON NORMALS: no apparent distress and healthy appearing HENMT: COMMON NORMALS: normocephalic and external nose normal HEAD & SCALP: normocephalic NOSE: external nose normal and no nasal discharge (nasal dischage) Eye: COMMON NORMALS: PERRL PUPIL: Yes PERRL Neck/C-Spine: COMMON NORMALS: full ROM and no lymphadenopathy Chest: COMMONS NORMALS: inspection of chest normal Resp: COMMON NORMALS: normal respiratory effort and clear to auscultation bilaterally AUSCULTATION: clear to auscultation bilaterally Cardio: COMMON NORMALS: regular rate and regular rhythm RATE: regular rate RHYTHM: regular rhythm GI: COMMON NORMALS: soft to palpation PALPATION: Yes soft Extremity: COMMON NORMALS: normal to inspection, full ROM and normal capillary refill Psych: COMMON NORMALS: mental status grossly normal and cooperative Skin: COMMON NORMALS: no rashes or lesions noted GENERAL SKIN EXAM: no rashes or lesions noted Course Vital Signs: Vital signs: Vital Signs Temperature 97.4 F L 07/10/19 17:41 Pulse Rate 67 07/10/19 17:41 Respiratory Rate 17 07/10/19 17:41 Blood Pressure 120/71 07/10/19 17:41 Pulse Oximetry 100 07/10/19 17:41 MDM - Female MDM Narrative: Medical decision making narrative: Patient presents here with a threatened miscarriage. Patient's bedside ultrasound shows an IUP with heart rate in the 140s. Ultrasound is consistent with her dates. Patient given RhoGam as she is O-. Her bleeding has improved and she is stable for discharge and is to follow-up with her OB as soon as possible. Lab Data: Labs: Lab Results 07/10/19 Range/Units 19:50 Blood Type O Negative Antibody Screen Negative Screen Negative (Negative) Discharge Plan Discharge Patient Disposition: Home, Self-Care Clinical Impression: Threatened Condition: Stable Prescriptions: No Action albuterol sulfate 90 mcg/actuation Hfa Aerosol Inhaler 2 puff INHALATION QID PRN (Reason: Shortness Of Breath Or Wheezing) RF: 0 28-800 mg-mcg Tablet 1 tab PO DAILY RF: 0 ondansetron HCl [Zofran] 4 mg tablet 4 mg PO QID PRN (Reason: nausea and vomiting) Qty: 14 RF: 0 Discharge Orders: Discharge Order (Routine); Ordered 07/10/19 Ordered By: Pam Roy Referrals: Greg Begum FNP [Primary Care Provider] - Discharge Diet: Advance as tolerated Discharge Activity: Resume usual activity Patient Instructions: Threatened Miscarriage (ED) Coding Level of Care Code ED Access Services Representative for Chg Fwd The documentation recorded by the scribe, [id number], accurately reflects the service I personally performed and the decisions made by , Pam Roy MD Jul 10, 2019 17:25
[2019-07-10 21:13] VITALS: BP 118/76; PULSE 82; RESP 18; TEMP 36.9
[2019-07-10 21:43] VITALS: BP 123/75; PULSE 76; RESP 16; TEMP 37.1; O2SAT 98
== END 2019-07-10 22:03 | disposition home or self-care (01) ==
PROVIDERS: Emergency Provider Emergency Medicine; Family Provider Nurse Practitioner Family; PCP Nurse Practitioner Family
DX: O20.0 Threatened abortion (principal); Z3A.16 16 weeks gestation of pregnancy
CPT/HCPCS: 36415; 86850; 86900; 90384; 99281; A9270

== ENCOUNTER 2019-07-11 03:59 | Emergency (ER) | payer BC, SELFPAY | END 2019-07-11 04:12 | disposition left against medical advice (07) | LOC: ER 07-20 21:29 | PROVIDERS: Emergency Provider Family Medicine; Family Provider Nurse Practitioner Family; PCP Nurse Practitioner Family | DX: Z53.21 Procedure and treatment not carried out due to patient leaving prior to being seen by health care provider (principal) | CPT/HCPCS: 99281 ==

== ENCOUNTER 2019-07-15 06:14 | Emergency (ER) | payer BC, SELFPAY ==
--- NOTE | 2019-07-15 06:17 | W.ED.GENADLT ---
HPI - General Adult General: Chief complaint: General Medical Stated complaint: multiple complaints Time Seen by Provider: 07/15/19 06:16 History of Present Illness: HPI narrative: 19-year-old female brought in by EMS. She is complaining of nausea and vomiting which is been having frequently she is approximately 4 months per her report. [facility] because she had a vomit and says she twisted her left knee. EMS reported no vomit at the scene and she was ambulatory weightbearing on the left knee evidently. She has not had any care to this point. She denies previous injury to that left knee. She denies vaginal bleeding or discharge. Associated symptoms: Reports nausea and vomiting; Deny chest pain, dyspnea, malaise or rash Review of Systems Const: Denies: fever, chills, body aches, change in appetite, fatigue or malaise ENMT: Denies: throat pain, ear pain, nasal discharge or nasal congestion Card: Denies: chest pain, edema, shortness of breath on exertion or shortness of breath when lying down Resp: Denies: shortness of breath, productive cough or non-productive cough GI: Reports: nausea and vomiting; Denies: abdominal pain, vomiting blood, coffee grounds in vomit, diarrhea, constipation, bloating, blood in stool or black tarry stool : Denies: flank pain, difficulty urinating, painful urination, urinary frequency or urinary urgency Musc: Reports: joint pain (Left knee) Skin/Breast: Denies: rash or itching PFSH ED PFSH: Statuses (acute, chronic, etc) shown below reflect problem list status as previously entered and may not be historically accurate Family History (Updated 07/17/19 @ 13:12 by Raysa Rangel RN) Family/Other Breast cancer maternal aunt Hypertension unknown Social History Smoking and tobacco status: former smoker Current gender identity: Female Female Reproductive History: Date of last menstrual period: 03/17/19 Physical Exam Const: COMMON NORMALS: no apparent distress GENERAL APPEARANCE: cooperative and comfortable ORIENTATION/CONSCIOUSNESS: Yes awake, Yes oriented to person, Yes oriented to place and Yes oriented to time HENMT: COMMON NORMALS: normocephalic, head/scalp atraumatic, hearing grossly normal bilaterally, external ears normal, EAC's normal, TM's normal bilaterally, nasal mucous membranes and turbinates normal, moist oral mucous membranes and oropharynx normal HEAD & SCALP: normocephalic and atraumatic NOSE: nasal mucous membranes and turbinates normal EXTERNAL EAR: Yes external ears normal EXTERNAL AUDITORY CANAL: EAC's normal TYMPANIC MEMBRANE: TM's normal bilaterally Eye: COMMON NORMALS: PERRL, EOMs intact bilaterally, conjunctivae normal and no scleral icterus CONJUNCTIVA: Yes conjunctivae normal PUPIL: Yes PERRL Neck/C-Spine: COMMON NORMALS: full ROM, no lymphadenopathy, supple and no JVD Lymph: LYMPHATIC: no lymphadenopathy noted and no lymphedema noted Resp: COMMON NORMALS: normal respiratory effort, no retractions, no use of accessory muscles and clear to auscultation bilaterally AUSCULTATION: clear to auscultation bilaterally Cardio: COMMON NORMALS: no JVD, regular rate, regular rhythm and no murmurs RATE: regular rate RHYTHM: regular rhythm GI: COMMON NORMALS: soft to palpation and no hepatosplenomegaly AUSCULTATION: Yes normoactive bowel sounds PALPATION: Yes soft, No tender, No guarding and Yes no hepatosplenomegaly Extremity: COMMON NORMALS: normal to inspection, normal capillary refill, no clubbing, cyanosis or edema, no calf tenderness and no pedal edema Neuro: SENSORIUM/ORIENTATION: Yes oriented to person, Yes oriented to place and Yes oriented to time Skin: COMMON NORMALS: no rashes or lesions noted GENERAL SKIN EXAM: no rashes or lesions noted Course ED course: Improved with IV fluids and antiemetics. Phenergan as needed for nausea continue vitamins can do half twice daily if needed follow-up with primary care doctor return if worsens. Knee x-ray did not show anything significant patient was ambulating the gutierrez without difficulty prior to discharge. Vital Signs: Vital signs: Vital Signs Temperature 98.1 F 07/15/19 06:33 Pulse Rate 94 07/15/19 10:17 Respiratory Rate 16 07/15/19 10:17 Blood Pressure 106/55 07/15/19 10:17 Pulse Oximetry 98 07/15/19 10:17 [facility] - General Adult Lab Data: Labs: Lab Results 07/15/19 07/15/19 07/15/19 Range/Units 06:30 07:00 07:29 WBC 8.1 (4.0-10.0) 10^3/ uL RBC 3.73 L (4.1-5.3) 10^6/u L Hgb 10.6 L (11.5-15.3) g/dL Hct 32.1 L (37.0-47.0) % MCV 86.1 (81-99) fL MCH 28.4 (28.0-34.0) pg MCHC 33.0 (30.0-36.0) g/dL RDW 12.3 (12.1-15.1) % Plt Count 157 (130-400) 10^3/c mm MPV 11.6 H (7.4-10.4) fL Neut % (Auto) 76.4 % Lymph % (Auto) 16.7 % [place] % (Auto) 5.7 % Eos % (Auto) 0.9 % Baso % (Auto) 0.1 % Neut # (Auto) 6.2 (1.8-7.7) 10^3/u L Lymph # (Auto) 1.4 (0.8-4.8) 10^3/u L [place] # (Auto) 0.5 (0.2-0.9) 10^3/u L Eos # (Auto) 0.1 (0.0-0.8) 10^3/u L Baso # (Auto) 0.0 (0.0-0.1) 10^3/u L Nucleated RBC % (a uto) 0 % Nucleated RBCs # 0.0 /100WBC Sodium 134 L (136-145) mmol/L Potassium 3.8 (3.5-5.1) mmol/L Chloride 102 (98-107) mmol/L Carbon Dioxide 21 L (22-29) mmol/L Anion Gap 14.8 (5-19) BUN 6 (6-20) mg/dL Creatinine 0.5 (0.5-0.9) mg/dL GFR Calculation 155.7 H (90-130) mL/min Glucose 94 (74-109) mg/dL Calcium 9.4 (8.5-10.5) mg/dL Total Bilirubin 0.2 (0.15-1.2) mg/dL AST 22 (0-32) U/L ALT 22 (0-33) U/L Alkaline Phosphata se 84 (35-105) IU/L Total Protein 7.0 (6.6-8.7) g/dL Albumin 3.6 (3.5-5.2) g/dL Globulin 3.4 (1.3-4.6) g/dL Urine Color Yellow (Yellow) Urine Appearance Cloudy (CLEAR) Urine pH 5.0 (5-7) Ur Specific Gravit y 1.030 (1.005-1.030) Urine Protein Trace (Negative) Urine Glucose (UA) Norm (Normal) Urine Ketones Negative (Negative) Urine Occult Blood Neg (Negative) Urine Nitrate Negative (Negative) Urine Bilirubin 1+ H (NEGATIVE) Urine Urobilinogen 1 H (Negative) mg/dL Ur Leukocyte Diamond ase Trace H (Negative) Urine RBC 0-4 H (0-2) /hpf Urine WBC 5-10 H (0-5) /hpf Ur Squamous Epith Cells 40-55 H (0-5) Urine Bacteria 2+ H (NONE) Urine Mucus 1+ Discharge Plan Discharge Patient Disposition: Home, Self-Care Clinical Impression: Hyperemesis, Knee sprain Condition: Stable Prescriptions: No Action diphenhydramine HCl [Benadryl] 25 mg capsule 25 mg PO .as needed at bedtime RF: 0 28-800 mg-mcg Tablet 1 tab PO DAILY RF: 0 Discharge Orders: Discharge Order (Routine); Ordered 07/15/19 Ordered By: John Vuong Referrals: Greg Begum FNP [Primary Care Provider] - Discharge Diet: Advance as tolerated Discharge Activity: Resume usual activity Activity Restrictions/Additional Instructions: Case management will assist in getting you set up with an churn drill operator. Use Phenergan instead of ondansetron. Clear liquid diet for 24 hours then advance. Can use ice and Tylenol on your knee sprain. Discharge Date/Time: 07/15/19 10:20 Coding Level of Care Code ED Private Branch Exchange Service Advisor for Rowdyg Fwd Exam Problem Focused
[2019-07-15 06:24] VITALS: BP 106/66; PULSE 73; RESP 20; TEMP 36.7; O2SAT 99; BMI 28.1
[2019-07-15 06:33] VITALS: BP 106/66; PULSE 68; RESP 18; TEMP 36.7; O2SAT 98
--- NOTE | 2019-07-15 06:35 | PC.NURSE ---
Introduced self to patient and initiated vital signs. Pt is A&O x 4 and agreeable. Pt states that the reason for the ER visit today is due to n/v and falling in [employer]. Pt also complaining of knee and ankle pain from twisting each. Reassured patient of needs and will continue to monitor. Awaiting provider at bedside.
--- NOTE | 2019-07-15 06:37 | XR_ITS ---
WS: [id number] LEFT KNEE: 3 VIEW(S) TECHNIQUE: AP, oblique(s) and lateral. HISTORY: fall pain COMPARISON: None available. No definite fracture. Incomplete vertical lucency through the patella. No associated effusion. No joint space narrowing or osteophytes. No joint effusion. No soft tissue abnormality. XR/XR knee LT 3V* [id number] IMPRESSION: 1. Incomplete lucency through the patella seen on the oblique image. Probably a nutrient foramen. 2. No joint effusion.
[2019-07-15 07:00] LABS: Alanine Aminotransferase 22 U/L (0-33); Albumin Level 3.6 g/dL (3.5-5.2); Alkaline Phosphatase 84 IU/L (35-105); Anion Gap 14.8 (5-19); Blood Urea Nitrogen 6 mg/dL (6-20); Calcium 9.4 mg/dL (8.5-10.5); Carbon Dioxide 21 mmol/L (22-29); Chloride 102 mmol/L (98-107); Globulin 3.4 g/dL (1.3-4.6); Glomerular Filtration Rate 155.7 mL/min (90-130); Glucose 94 mg/dL (74-109); Potassium 3.8 mmol/L (3.5-5.1); Sodium 134 mmol/L (136-145); Total Bilirubin 0.2 mg/dL (0.15-1.2)
--- NOTE | 2019-07-15 07:02 | PC.NURSE ---
take over patient care
[2019-07-15] MEDS: promethazine 25 mg/mL SDV 1 mL IM (07:06)
[2019-07-15 07:17] LABS: Aspartate Amino Transferase 22 U/L (0-32)
[2019-07-15] MEDS: sodium chlor 0.9% + KCl 20 mEq 20 MEQ/1,000 ML BAG 125 MEQ IV (07:33)
[2019-07-15] MEDS: sodium chloride 0.9% 1,000 ML 999 ML IV (07:33)
[2019-07-15 07:38] LABS: Basophils % 0.1 %; Eosinophils # 0.1 10^3/uL (0.0-0.8); Eosinophils % 0.9 %; Hematocrit 32.1 % (37.0-47.0); Hemoglobin 10.6 g/dL (11.5-15.3); Lymphocytes # 1.4 10^3/uL (0.8-4.8); Lymphocytes % 16.7 %; Mean Corpuscular Hemoglobin 28.4 pg (28.0-34.0); Mean Corpuscular Volume 86.1 fL (81-99); Mean Platelet Volume 11.6 fL (7.4-10.4); Monocytes # 0.5 10^3/uL (0.2-0.9); Monocytes % 5.7 %; Neutrophils # 6.2 10^3/uL (1.8-7.7); Neutrophils % 76.4 %; Nucleated Red Blood Cells % 0 %; Platelet Count 157 10^3/cmm (130-400); Red Blood Count 3.73 10^6/uL (4.1-5.3); Red Cell Distribution Width 12.3 % (12.1-15.1); White Blood Count 8.1 10^3/uL (4.0-10.0)
--- NOTE | 2019-07-15 07:58 | PC.NURSE ---
heart tones 154
[2019-07-15 08:13] LABS: Add Urine Microscopic? YES; Bilirubin Urine 1+ (NEGATIVE); Blood Urine Neg (Negative); Glucose Urine UA Norm (Normal); Ketones Urine Negative (Negative); Leukocyte Esterase Urine Trace (Negative); Nitrate Urine Negative (Negative); Protein Urine Trace (Negative); Urine Appearance Cloudy (CLEAR); Urine Color Yellow (Yellow); Urobilinogen Urine 1 mg/dL (Negative)
[2019-07-15 08:20] LABS: Add Urine Culture? No; Bacteria Urine 2+; Mucus Urine 1+; RBC Urine 0-4 /hpf (0-2); Squamous Epithelial Cell Urine 40-55 (0-5)
[2019-07-15 10:17] VITALS: BP 106/55; PULSE 94; RESP 16; O2SAT 98
--- NOTE | 2019-07-15 13:34 | DCPLANNER ---
concessions manager has worked with patient in the past, and has made a referral to [facility]. Patient does have an appointment scheduled for 07.17.19, which is Saturday, in two days. concessions manager informed ED physician that patient does have a follow up appointment scheduled, and called the patients friend and informed him of the appointment as well.
== END 2019-07-15 10:20 | disposition home or self-care (01) ==
PROVIDERS: Emergency Provider Family Medicine; Family Provider Nurse Practitioner Family; PCP Nurse Practitioner Family
DX: O26.899 Other specified pregnancy related conditions, unspecified trimester (principal); R11.10 Vomiting, unspecified; Z3A.00 Weeks of gestation of pregnancy not specified; S83.92XA Sprain of unspecified site of left knee, initial encounter; X50.1XXA Overexertion from prolonged static or awkward postures, initial encounter; Z87.891 Personal history of nicotine dependence
CPT/HCPCS: 36415; 73562; 80053; 81001; 85025; 96360; 96361; 96372; 99283; J2550; J7030

== ENCOUNTER → 2019-07-17 12:47 | Outpatient (BNVA) | payer BC, SELFPAY | PROVIDERS: Family Provider Nurse Practitioner Family; PCP Nurse Practitioner Family; Visit Provider Obstetrics & Gynecology | DX: O09.92 Supervision of high risk pregnancy, unspecified, second trimester (principal); O21.0 Mild hyperemesis gravidarum; Z3A.17 17 weeks gestation of pregnancy | CPT/HCPCS: 80307; 84315; 85027; 86592; 86762; 86803; 87086; 87340 ==